=== PATIENT | male | born 1950 | race Hispanic/Latino ===

== ENCOUNTER 2021-01-06 20:33 | Emergency (ER) | payer MEDICARE ==
[~2021-01-06] VITALS: Ht 172.7 cm; Wt 103.7 kg
[2021-01-06] MEDS ORDERED: NOVOINJ SC (20:43)
[2021-01-06] MEDS ORDERED: ATOR1TAB21 PO (20:43)
[2021-01-06] MEDS ORDERED: LISI10TA22 PO (20:43)
[2021-01-06] MEDS ORDERED: INSU100V3 SQ (20:43)
[2021-01-06] MEDS ORDERED: OMEP-406 PO (20:43)
--- NOTE | 2021-01-06 22:35 | REPVR ---
PROCEDURE INFORMATION: Exam: XR Left Ankle Exam date and time: 01/06/2021 9:42 PM Age: 70 years old Clinical indication: Pain and injury or trauma; Other: Twist; Sprain or strain; Ankle; Left; Additional info: Pain and swelling after twisting ankle TECHNIQUE: Imaging protocol: XR Left ankle. Views: 3 or more views. COMPARISON: No relevant prior studies available. FINDINGS: Bones/joints: Normal. No fracture. Soft tissues: Soft tissue edema about the ankle. IMPRESSION: 1. Diffuse edema about the ankle. 2. Otherwise negative left ankle. No fracture. Electronically signed by: Lloyd Isabel On 01/06/2021 22:34:57 PM
--- NOTE | 2021-01-06 22:37 | REPVR ---
PROCEDURE INFORMATION: Exam: XR Left Foot Exam date and time: 01/06/2021 9:42 PM Age: 70 years old Clinical indication: Injury or trauma; Other: Hit on rock; Blunt trauma; Foot; Left; Additional info: Pain and swelling after smashing foot on rock TECHNIQUE: Imaging protocol: XR Left foot. Views: 3 or more views. COMPARISON: No relevant prior studies available. FINDINGS: Bones/joints: Degenerative change at the interphalangeal joint of the great toe. No fractures. Soft tissues: Minimal linear metallic foreign body in the plantar soft tissues of the distal great toe. IMPRESSION: 1. Early degenerative change at the interphalangeal joint of the great toe. 2. Minimal linear metallic foreign body in the plantar soft tissues of the distal great toe. 3. Otherwise negative left foot. No fracture. Electronically signed by: Lloyd Isabel On 01/06/2021 22:37:38 PM
[2021-01-07] MEDS ORDERED: cefTRIAXone SOD 1 GM in D5W MINI-BAG PLUS 50 ML IV ONE (01:45)
--- NOTE | 2021-01-07 02:09 | REPVR ---
PROCEDURE INFORMATION: Exam: XR Right Toe(s) Exam date and time: 01/07/2021 2:00 AM Age: 70 years old Clinical indication: Other: Open wound great toe; Additional info: Swelling, open wound great toe, dm TECHNIQUE: Imaging protocol: XR Right toes. Views: Minimum 2 views. COMPARISON: No relevant prior studies available. FINDINGS: Bones/joints: Early degenerative changes noted at the interphalangeal joint of the great toe and to a lesser degree the 1st metatarsophalangeal joint. No fractures. No erosive changes. Soft tissues: Soft tissue swelling of the great toe and possibly the distal 2nd and 3rd toes. Soft tissue irregularity of the distal great toe consistent with wound or ulceration. Foreign material is noted on the skin of the great toe, primarily along the plantar aspect. IMPRESSION: 1. Soft tissue swelling of the great toe with evidence of distal medial wound or ulceration. There is question of some additional soft tissue swelling of the distal 2nd and 3rd toes. 2. Radiopaque foreign material is noted on the skin of the great toe, primarily along the plantar aspect. 3. Degenerative changes of the interphalangeal joint of the great toe and to a lesser degree the 1st metatarsophalangeal joint. 4. No destructive or erosive changes are evident in the bones. Electronically signed by: Lloyd Isabel On 01/07/2021 02:08:44 AM
--- NOTE | 2021-01-07 02:23 | REPVR ---
PROCEDURE INFORMATION: Exam: US Duplex Left Lower Extremity Veins, Limited Exam date and time: 01/07/2021 2:11 AM Age: 70 years old Clinical indication: Edema, localized; Lower extremity, left; Additional info: Swelling ankle calf, HX dvt/pe TECHNIQUE: Imaging protocol: Real-time Duplex ultrasound of the Left Lower Extremity with 2-D godwin scale, color Doppler flow and spectral waveform analysis with image documentation. Limited exam focused on the left lower extremity veins. COMPARISON: CR Foot, complete LEFT 01/06/2021 9:38 PM FINDINGS: Left deep veins: Unremarkable. The common femoral, femoral, proximal profunda femoral and popliteal veins are patent without thrombus. Normal Doppler waveforms. Normal compressibility and/or augmentation response. Left superficial veins: Unremarkable. Saphenofemoral junction is patent without thrombus. Soft tissues: Unremarkable. IMPRESSION: Negative left lower extremity venous duplex exam without evidence of deep venous thrombosis. Electronically signed by: Lloyd Isabel On 01/07/2021 02:23:12 AM
[2021-01-07 02:53] LABS: BASO % 0.3 % (0.0-1.0); EOS # 0.3 10^3/uL (0.0-0.5); EOS % 2.5 % (0.0-3.0); HEMATOCRIT 38.2 % (42.0-52.0); HEMOGLOBIN 12.2 g/dl (13.5-17.5); LYMPH # 3.1 10^3/uL (1.5-5.0); LYMPH % 30.5 % (24.0-44.0); MEAN CORPUSCULAR HEMOGLOBIN 30.1 pg (27.0-33.0); MEAN CORPUSCULAR HGB CONC 31.9 g/dl (32.0-36.5); MEAN CORPUSCULAR VOLUME 94.3 fl (80.0-96.0); MONO # 0.9 10^3/uL (0.0-0.8); MONO % 8.8 % (2.0-8.0); NEUTROPHILS # 5.8 10^3/uL (1.5-8.5); NEUTROPHILS % 57.6 % (36.0-66.0); PLATELET COUNT, AUTOMATED 206 10^3/uL (150-450); RED BLOOD COUNT 4.05 10^6/uL (4.30-6.10); WHITE BLOOD COUNT 10.1 10^3/uL (4.0-10.0)
[2021-01-07 03:04] LABS: C REACTIVE PROTEIN QUANTITATIV 2.68 MG/DL (0.00-0.30); CALCIUM LEVEL 9.1 MG/DL (8.8-10.2); CREATININE FOR GFR 1.67 MG/DL (0.70-1.30); GLOMERULAR FILTRATION RATE 43.5 (>42); POTASSIUM SERUM 4.2 MEQ/L (3.5-5.1)
[2021-01-07 03:16] LABS: ERYTHROCYTE SEDIMENTATION RATE 51 mm/hr (0-20)
[2021-01-07 05:00] VITALS: BP 160/84
--- NOTE | 2021-01-10 11:33 | ED PDOC ---
Post-Departure Follow-Up radiology report faxed to Dian Lindsey MD Jan 10, 2021 11:33
== END 2021-01-07 05:46 | disposition home or self-care (01) ==
LOC: M ED 20:33
DX: M79.675 Pain in left toe(s) (principal); R60.9 Edema, unspecified; E11.40 Type 2 diabetes mellitus with diabetic neuropathy, unspecified; I12.9 Hypertensive chronic kidney disease with stage 1 through stage 4 chronic kidney disease, or unspecified chronic kidney disease; N18.30 Chronic kidney disease, stage 3 unspecified; E78.5 Hyperlipidemia, unspecified; Z79.899 Other long term (current) drug therapy; Z79.4 Long term (current) use of insulin
CPT/HCPCS: 73610; 73630; 73660; 80048; 85025; 85652; 86140; 87040; 93971; 96365; 99284; J0696

== ENCOUNTER → 2021-03-02 | Outpatient (REF) | payer MEDICARE ==
[~2021-03-02] MED LIST: ATOR1TAB21 PO; INSU100V3 SQ; LISI10TA22 PO; NOVOINJ SC; OMEP-406 PO
[2021-03-02 12:53] LABS: BASO # 0.1 10^3/uL (0.0-0.2); BASO % 0.6 % (0.0-1.0); EOS # 0.2 10^3/uL (0.0-0.5); EOS % 1.9 % (0.0-3.0); HEMATOCRIT 33.6 % (42.0-52.0); HEMOGLOBIN 10.9 g/dl (13.5-17.5); LYMPH # 2.2 10^3/uL (1.5-5.0); LYMPH % 24.6 % (24.0-44.0); MEAN CORPUSCULAR HEMOGLOBIN 30.4 pg (27.0-33.0); MEAN CORPUSCULAR HGB CONC 32.4 g/dl (32.0-36.5); MEAN CORPUSCULAR VOLUME 93.9 fl (80.0-96.0); MONO # 0.8 10^3/uL (0.0-0.8); MONO % 8.6 % (2.0-8.0); NEUTROPHILS # 5.7 10^3/uL (1.5-8.5); PLATELET COUNT, AUTOMATED 164 10^3/uL (150-450); RED BLOOD COUNT 3.58 10^6/uL (4.30-6.10)
[2021-03-02 13:28] LABS: ALBUMIN 3.5 GM/DL (3.2-5.2); BILIRUBIN,DIRECT 0.1 MG/DL (0.0-0.2); BILIRUBIN,TOTAL 0.4 MG/DL (0.2-1.0); CALCIUM LEVEL 8.2 MG/DL (8.8-10.2); CREATININE FOR GFR 1.75 MG/DL (0.70-1.30); GLOMERULAR FILTRATION RATE 41.1 (>42); PHOSPHORUS LEVEL 2.6 MG/DL (2.5-4.9); POTASSIUM SERUM 4.7 MEQ/L (3.5-5.1); TOTAL PROTEIN 6.4 GM/DL (6.4-8.2)
== END ==
LOC: M LABDRWAD 12:19
PROVIDERS: ATTEND Podiatrist Foot & Ankle Surgery
DX: E10.621 Type 1 diabetes mellitus with foot ulcer (principal)

== ENCOUNTER → 2021-03-14 | Outpatient (REF) | payer MEDICARE | LOC: M LAB REF 14:07 | PROVIDERS: ATTEND Podiatrist Foot & Ankle Surgery | DX: L03.031 Cellulitis of right toe (principal) ==

== ENCOUNTER → 2021-03-27 | Outpatient (REF) | payer MEDICARE ==
[2021-03-27 17:14] LABS: BASO # 0.1 10^3/uL (0.0-0.2); BASO % 1.1 % (0.0-1.0); EOS # 0.2 10^3/uL (0.0-0.5); EOS % 1.7 % (0.0-3.0); HEMATOCRIT 34.9 % (42.0-52.0); HEMOGLOBIN 11.4 g/dl (13.5-17.5); LYMPH # 2.2 10^3/uL (1.5-5.0); LYMPH % 22.5 % (24.0-44.0); MEAN CORPUSCULAR HEMOGLOBIN 30.6 pg (27.0-33.0); MEAN CORPUSCULAR HGB CONC 32.7 g/dl (32.0-36.5); MEAN CORPUSCULAR VOLUME 93.6 fl (80.0-96.0); MONO # 0.6 10^3/uL (0.0-0.8); MONO % 6.3 % (2.0-8.0); NEUTROPHILS # 6.7 10^3/uL (1.5-8.5); NEUTROPHILS % 67.8 % (36.0-66.0); PLATELET COUNT, AUTOMATED 242 10^3/uL (150-450); RED BLOOD COUNT 3.73 10^6/uL (4.30-6.10); WHITE BLOOD COUNT 9.9 10^3/uL (4.0-10.0)
[2021-03-27 17:46] LABS: CALCIUM LEVEL 8.9 MG/DL (8.8-10.2); CREATININE FOR GFR 1.65 MG/DL (0.70-1.30); POTASSIUM SERUM 4.7 MEQ/L (3.5-5.1)
== END ==
LOC: M LAB REF 16:46
PROVIDERS: ATTEND Nurse Practitioner
DX: M86.9 Osteomyelitis, unspecified (principal)

== ENCOUNTER → 2021-04-03 | Outpatient (REF) | payer MEDICARE ==
[2021-04-03 14:51] LABS: BASO # 0.1 10^3/uL (0.0-0.2); BASO % 1.1 % (0.0-1.0); EOS # 0.2 10^3/uL (0.0-0.5); EOS % 2.8 % (0.0-3.0); HEMATOCRIT 34.6 % (42.0-52.0); HEMOGLOBIN 11.3 g/dl (13.5-17.5); LYMPH # 1.8 10^3/uL (1.5-5.0); LYMPH % 28.1 % (24.0-44.0); MEAN CORPUSCULAR HEMOGLOBIN 29.7 pg (27.0-33.0); MEAN CORPUSCULAR HGB CONC 32.7 g/dl (32.0-36.5); MEAN CORPUSCULAR VOLUME 91.1 fl (80.0-96.0); MONO # 0.4 10^3/uL (0.0-0.8); MONO % 6.8 % (2.0-8.0); NEUTROPHILS # 3.9 10^3/uL (1.5-8.5); NEUTROPHILS % 60.7 % (36.0-66.0); PLATELET COUNT, AUTOMATED 196 10^3/uL (150-450); WHITE BLOOD COUNT 6.4 10^3/uL (4.0-10.0)
[2021-04-03 15:19] LABS: CREATININE FOR GFR 1.68 MG/DL (0.70-1.30); GLOMERULAR FILTRATION RATE 43.1 (>42); POTASSIUM SERUM 4.4 MEQ/L (3.5-5.1)
== END ==
LOC: M LAB REF 14:24
PROVIDERS: ATTEND Nurse Practitioner
DX: M86.9 Osteomyelitis, unspecified (principal)